=== PATIENT | male | born 1990 | race Caucasian/White ===

== ENCOUNTER 2024-01-16 17:55 | Emergency (ER) | payer SELFPAY ==
[~2024-01-16] VITALS: Ht 183.5 cm; Wt 84.1 kg
[2024-01-16 18:32] VITALS: BP 139/80; PULSE 185; RESP 14; TEMP 98.3
[2024-01-16 18:59] LABS: BASOPHILS % (AUTO) 0.6 % (0.0-2.0); EOSINOPHILS % (AUTO) 0 % (1.0-6.0); HEMATOCRIT 41.1 % (41-53); HEMOGLOBIN 13.5 g/dL (13.5-17.5); LYMPHOCYTES # (AUTO) 0.8 K/uL (1.0-4.8); LYMPHOCYTES % (AUTO) 3.7 % (22.0-44.0); MEAN CORPUSCULAR HEMOGLOBIN 28.9 pg (26.0-34.0); MEAN CORPUSCULAR HGB CONC 32.9 G/dL (31.0-37.0); MEAN CORPUSCULAR VOLUME 88 fL (80-100); MONOCYTES # (AUTO) 1.6 K/uL (0.1-1.0); MONOCYTES % (AUTO) 7.2 % (2.0-9.0); NEUTROPHILS # (AUTO) 19.2 K/uL (1.8-7.7); PLATELET COUNT (AUTO) 185 K/uL (150-450); RED BLOOD CELL COUNT(AUTO) 4.67 MIL/uL (4.50-5.90); RED CELL DISTRIBUTION WIDTH 14.1 % (11.5-14.5); WHITE BLOOD COUNT (AUTO) 21.7 K/uL (4.5-11.0)
[2024-01-16 19:14] LABS: CALCIUM, TOTAL 9.1 mg/dL (8.8-10.5); CREATININE 1.42 mg/dL (0.60-1.30); POTASSIUM 4.5 mmol/L (3.5-5.1)
[2024-01-16] MEDS ORDERED: IBUP-1554 PO (19:17)
[2024-01-16] MEDS ORDERED: DOXY-354 PO (19:17)
[2024-01-16] MEDS ORDERED: HYDR-4062 PO (19:17)
[2024-01-16] MEDS ORDERED: CEPH-558 PO (19:17)
[2024-01-16 19:20] LABS: ALBUMIN 3.3 g/dL (3.4-5.0); BILIRUBIN,TOTAL 0.8 mg/dL (0.1-1.0); TOTAL PROTEIN, SERUM 7.6 g/dL (6.4-8.2)
[2024-01-16 19:23] LABS: NEUTROPHILS % (AUTO) 88.5 % (40.0-70.0)
[2024-01-16] MEDS: DOXYCYCLINE HYCLATE 100 MG TABLET PO ONE (19:23)
[2024-01-16] MEDS: LIDOCAINE/PF 1% 2 ML VIAL IM ONE (19:24)
[2024-01-16] MEDS: CefTRIAXone SODIUM 1 GM/VIAL IM ONE (19:24)
== END 2024-01-16 19:38 | disposition left against medical advice (07) ==
LOC: EMS 17:55
DX: L03.116 Cellulitis of left lower limb (principal)
CPT/HCPCS: 99283; 80053; 85025; 36415; 96372; J0696; J3490